=== PATIENT | male | born 1985 | race Caucasian/White ===

== ENCOUNTER 2024-03-19 15:45 | Outpatient (CLI) | payer OTHER ==
--- NOTE | 2024-03-22 16:10 | MRI Report ---
PROCEDURE: Shoulder RT WO INDICATIONS: RIGHT SHOULDER PAIN TECHNIQUE: Noncontrast oblique coronal T2 fast spin echo with fat saturation, oblique sagittal T1 spin echo and T2 fast spin echo with fat saturation, axial T1 spin echo and T2 fast spin echo with fat saturation a nd 3-D gradient echo through the shoulder. COMPARISON: None. FINDINGS: Image quality: Excellent. Rotator cuff: Mild supraspinatus and infraspinatus tendinosis. Teres minor tendon is intact. Mild rollins bscapularis tendinosis. No significant rotator cuff tendon tearing. The rotator cuff musculature is n ormal in bulk. Bones and bursae: No acute irregular bone injury or fracture. Mild partial thickness cartilage irreg ularity in the glenohumeral joint with small marginal osteophytes. Moderate degenerative changes at t he acromioclavicular joint subchondral edema, subchondral cystic changes, and small marginal osteophy kim. Trace fluid is seen in the subacromial/subdeltoid bursa. No significant glenohumeral effusion. Capsule and soft tissues: Nondisplaced tearing of the posteroinferior to the inferior labrum. Proxima l biceps long head tendon demonstrates mild to moderate tendinosis. There is partial effacement of fa t signal in the rotator interval. The inferior glenohumeral ligament and the middle glenohumeral liga ment appear mildly thickened. IMPRESSION: 1.Nondisplaced tearing of the posteroinferior to inferior labrum. 2.Mild to moderate proximal biceps long head tendinosis. 3.Mild diffuse rotator cuff tendinosis. No significant rotator cuff tendon tearing. 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 Moderate acromioclavicular joint osteoarthrosis. 5.Partial effacement of the rotator interval fat and mild thickening of the inferior and middle gleno humeral ligaments are nonspecific, but can be seen in the setting of the clinical syndrome of adhesiv e capsulitis. Reviewed by: Olman Manzo MD on 03/22/2024 4:09 PM PDT Approved by: Olman Manzo MD on 03/22/2024 4:09 PM PDT Station ID: [id number]
== END 2024-03-19 15:46 | disposition home or self-care (01) ==
LOC: DI 15:45
PROVIDERS: ATTEND Internal Medicine
DX: S43.491A Other sprain of right shoulder joint, initial encounter (principal); M67.921 Unspecified disorder of synovium and tendon, right upper arm; M19.011 Primary osteoarthritis, right shoulder; M94.211 Chondromalacia, right shoulder